=== PATIENT | male | born 1980 | race Caucasian/White ===

== ENCOUNTER 2022-04-11 14:31 | Emergency (ER) | payer OTHER ==
[2022-04-11 15:07] VITALS: BP 162/99; PULSE 91; TEMP 98.6; BMI 39.4
[2022-04-11] MEDS ORDERED: FLUORESCEIN NA 1 EA STRIP ONE (17:03)
== END 2022-04-11 17:55 | disposition home or self-care (01) ==
LOC: JERFT 14:31
DX: S05.02XA Injury of conjunctiva and corneal abrasion without foreign body, left eye, initial encounter (principal); W26.8XXA Contact with other sharp object(s), not elsewhere classified, initial encounter; Y93.H2 Activity, gardening and landscaping
CPT/HCPCS: 99283-25